=== PATIENT | female | born 1985 | race Caucasian/White ===

== ENCOUNTER 2016-08-09 16:47 | Emergency (ER) | payer OTHER ==
[2016-08-09 16:54] VITALS: BP 135/73
[2016-08-09] MEDS ORDERED: DIPHTH,PERTUSS(ACELL),TET VAC 0.5 ML VIAL IM ONE ×2 (16:59→17:39)
--- NOTE | 2016-08-09 17:10 | ERNOTE ---
Lower Extremity HPI - Narrative Date of Service: 08/09/16 - General Lower Extremities Pain: foot: left Time Seen by Provider: 08/09/16 17:03 Source: patient, RN notes reviewed Exam Limitations: no limitations - Immun/Allergies/Home Medications Immunizations: IMMUNIZATION HX Immunizations Up to Date Yes History of Influenza Vaccine No Hx Pneumococcal Vaccination No Allergies/Adverse Reactions: Allergies Allergy/AdvReac Type Severity Reaction Status Date / Time adhesive tape Allergy Verified 08/09/16 16:54 hydromorphone HCl Allergy Anaphylaxis Verified 08/09/16 16:54 [From Dilaudid] Home Medications: HOME MEDICATIONS NK [No Home Medication] 08/24/15 [Last Taken Unknown] - History of Present Illness Narrative: 31 y/o female ambulatory to the ED for a foot injury that occurred this past weekend. She stepped on a small nail from a piece of furniture. The nail punctured the sole of her left foot. The nail was intact when removed. She reports the pain is a little better today than what it has been for the past few days. She is unsure of when her last tetanus vaccination was. Date (Duration): 08/05/16 Location of Incident: home Other Injuries: Reports: none Subsequent Symptoms: Denies: sensory loss, numbness Prior Treament: Denies: recently seen, currently on antibiotics Review of Systems - Review of Systems Constitutional: Absent: fever, chills, malaise EYE: Present: no symptoms reported ENT: Present: no symptoms reported Respiratory: Present: no symptoms reported Cardiology: Present: no symptoms reported Gastrointestinal/Abdominal: Absent: nausea, vomiting Genitourinary: Present: no symptoms reported Musculoskeletal: Absent: joint pain, joint swelling Skin: Absent: rash, lesions, lumps, change in color Neurological: Absent: weakness, numbness, tingling Endocrine: Present: no symptoms reported Hematologic/Lymphatic: Absent: easy bruising, easy bleeding Psych: Present: no symptoms reported - Patient's Past Medical History Patient History - Medical: Chronic Pain, Depression Patient History - Cardiac/Respiratory: No pertinent hx Patient History - Cancer: No Hx of Cancer Patient History - Surgical Procedures: Patient History - Other: None LMP (Calendar): 07/29/16 - Social History Living Situations: spouse Smoking Status: Never smoker Have you smoked in the past 12 months: No Alcohol Use: none Drug Use: none - Immunizations Immunizations Up to Date: No Hx Pneumococcal Vaccination: No History of Influenza Vaccine: No Physical Exam - Physical Exam General Appearance: Present: wd/wn, alert, no apparent distress, obese Neck: Present: normal inspection, nontender, supple Respiratory: Present: no respiratory distress, normal breath sounds, no accessory muscle use, lungs clear Cardiovascular/Chest: Present: regular rate, rhythm, no murmur, normal peripheral pulses Peripheral Pulses: N=norm/S=strong/W=weak/B=bound/A=absent: Dorsalis-pedis (R): Strong, Dorsalis-pedis (L): Strong Extremity Exam: Present: normal range of motion, no edema, other - mild tenderness surrounding puncture wound to plantar surface of left foot. Absent: joint redness, joint swelling Neurological Exam: Present: alert, oriented, normal mood/affect, no motor/ sensory deficits Skin Exam: Present: normal color, warm/dry, other - small puncture wound to plantar surface of left foot - no drainage, no surrounding redness ED Progress - Vital Signs Patient's Vital Signs:: I have reviewed the patient's vital signs. Vital Signs: Vital Signs 08/09/16 16:51 Temperature 37.1 C Pulse Rate 88 Respiratory 14 Rate Blood Pressure 135/73 O2 Sat by Pulse 95 Oximetry - X-Ray X-Ray #1 X-Ray: foot - left Interpretation: Interp. by me X-ray Comments: No acute osseous abnormality noted, no subcutaneous air, no foreign body - Progress/Reassessment Chief Complaint: Foot Injury/Pain Progress:: Unchanged Departure Clinical Impression: Puncture wound of plantar aspect of left foot without complication Qualifiers: Encounter type: initial encounter Qualified Code(s): S91.332A - Puncture wound without foreign body, left foot, initial encounter - Departure Disposition: Home self-care Condition: Good Instructions: Puncture Wound, [id number] Additional Instructions: Keep wound clean Weight bearing as tolerated Tylenol and/or ibuprofen for pain Referrals: Gabriella Naidu DO [Primary Care Provider] -
--- OUTSIDE RECORDS SUMMARY | 2016-08-09 17:16 | XMS REPORT | Continuity of Care Document ---
:1985 Author Organization [facility] ([facility]) [place] [address] Phone [phone] Care Team Providers Name Role Phone Provider, No-Primary Care Primary Care Provider Unavailable Source Comments This disclosure is being made pursuant to the Care Everywhere program, applicable federal and state laws, and may not contain all informaitonavailable regarding this patient.[facility] ([facility]) Active Allergies and Adverse Reactions Not on File Current Medications Prescription Sig. Disp. Refills Start Date End Date Status phentermine 30 mg Take 1 capsule (30 30 capsule 0 05/25/2015 Active capsule mg total) by mouth every morning after breakfast Take 2 hours after breakfast. Active Problems Not on file Most Recent Encounters Date Type Specialty Providers Description 06/20/2016 Hospital Encounter Obstetrics Chief Comp: Patient Reported Reason For Visit 06/20/2016 Office Visit OBG Reproductive Jaime Pena, Chief Comp: Patient Law Kirk MD Reported Reason For Aybout Man Sayearl, Visit CORBY Clark Social History Tobacco Use Types Packs/Day Years Used Date Never Assessed Last Filed Vital Signs Vital Sign Reading Time Taken Blood Pressure 113/69 05/25/2015 1:49 PM CDT Pulse 88 05/25/2015 1:49 PM CDT Temperature 37 C (98.6 F) 05/25/2015 1:49 PM CDT Respiratory Rate 12 05/25/2015 1:49 PM CDT Height - - Weight 108.546 kg (239 lb 4.8 oz) 05/25/2015 1:49 PM CDT Body Mass Index - - Oxygen Saturation - - Plan of Care Health Maintenance Due Date Last Done Comments Hepatitis B Vaccine (1 of 3 - Primary Series) 1984 Tdap Vaccine 1995 Lipid Disorder Screening 2002 MMR Vaccine 2002 Td Vaccine 2002 Varicella Vaccine (1 of 2 - Adult - No Evidence of 2002 Immunity) Cervical Cancer Screening 2014 Influenza Vaccine: Seasonal (Season Ended) 2016 Results from Last 3 Months Not on file
== END 2016-08-09 17:47 | disposition home or self-care (01) ==
LOC: ER 16:47
DX: S91.332A Puncture wound without foreign body, left foot, initial encounter (principal); Z23 Encounter for immunization; W45.0XXA Nail entering through skin, initial encounter; Y93.9 Activity, unspecified; Y92.009 Unspecified place in unspecified non-institutional (private) residence as the place of occurrence of the external cause